=== PATIENT | female | born 1990 | race African-American/Black ===

== ENCOUNTER 2017-06-02 14:38 | Emergency (ER) | payer SELFPAY ==
[~2017-06-02] VITALS: Ht 175.3 cm; Wt 64.0 kg
[2017-06-02] MEDS ORDERED: ALBUTEROL (0.083%) 2.5MG/3ML NEB HHN STA (15:58)
[2017-06-02] MEDS ORDERED: METHYLPREDNISOLONE SOD SUCC 125 MG/2 ML VIAL IV STA (15:58)
[2017-06-02] MEDS ORDERED: ACETAMINOPHEN 325MG TABLET PO ONE (16:15)
[2017-06-02 16:25] LABS: HEMATOCRIT. 37.4 % (36.0-48.0); HEMOGLOBIN. 12.3 g/dL (12.0-16.0); MEAN CORPUSCULAR VOLUME 79.6 fL (81.0-99.0); MEAN PLATELET VOLUME 8.9 fl (7.4-10.4); PLATELET 202 x1000/uL (130-400); RED BLOOD CELL COUNT 4.71 mill/uL (4.2-5.4); RED CELL DISTRIBUTION WIDTH 15.5 % (11.6-14.6)
[2017-06-02 16:28] LABS: INR 1.2; PARTIAL THROMBOPLASTIN TIME 27.6 sec (23.4-31.0); PROTHROMBIN TIME 12.3 sec (9.4-11.6)
[2017-06-02 16:31] LABS: CHLORIDE 100 mEq/L (98-107)
[2017-06-02 16:36] LABS: TROPONIN I < 0.02 ng/mL (0.00-0.04)
[2017-06-02 16:55] LABS: HCG SCREEN NEGATIVE
[2017-06-02 17:03] LABS: PLATELET ESTIMATE NORMAL
[2017-06-02] MEDS ORDERED: SODIUM CHLORIDE 0.9% 1,000 ML IV ONE (18:22)
[2017-06-02] MEDS ORDERED: IBUPROFEN 600MG TABLET PO ONE (18:30)
[2017-06-02] MEDS ORDERED: POTASSIUM CHLORIDE 20MEQ TABLET SR PO ONE (18:45)
[2017-06-02] MEDS ORDERED: OSELTAMIVIR 75MG CAPSULE PO ONE (19:00)
[2017-06-02 21:00] VITALS: BP 113/84
== END 2017-06-02 21:28 | disposition home or self-care (01) ==
LOC: ER 15:55
DX: J10.1 Influenza due to other identified influenza virus with other respiratory manifestations (principal); J20.9 Acute bronchitis, unspecified; R79.9 Abnormal finding of blood chemistry, unspecified; F12.10 Cannabis abuse, uncomplicated; R10.12 Left upper quadrant pain
CPT/HCPCS: 36415; 71045; 80048; 83880; 84484; 84703; 85025; 85610; 85730; 87804; 93005; 94640; 96361; 96374; 99285; J2930; J7030; J7611